=== PATIENT | male | born 1995 | race Caucasian/White ===

== ENCOUNTER 2023-10-21 22:13 | Emergency (ER) | payer BC ==
[~2023-10-21] VITALS: Ht 170.2 cm; Wt 102.5 kg
[2023-10-21 22:30] VITALS: BP 149/81; PULSE 79; RESP 18; TEMP 98.9; O2SAT 98
[2023-10-21] MEDS ORDERED: ALBUTEROL 0.083% 2.5 MG/3 ML NEBU INH ONE (23:25)
[2023-10-21 23:34] VITALS: PULSE 75; RESP 18; O2SAT 98
[2023-10-22 00:03] VITALS: O2SAT 98
== END 2023-10-21 23:56 | disposition home or self-care (01) ==
LOC: MED 22:13
DX: R06.4 Hyperventilation (principal); F41.9 Anxiety disorder, unspecified; Z79.899 Other long term (current) drug therapy
CPT/HCPCS: 94640; 99283; J7613